=== PATIENT | male | born 1965 | race African-American/Black ===

== ENCOUNTER 2021-07-30 13:30 | Outpatient (RCR) | payer MEDICARE, SELFPAY ==
[2021-05-05 11:13] VITALS: BP 134/90; PULSE 93; RESP 16; O2SAT 99
[2021-05-05 11:33] VITALS: PULSE 93
== END 2021-07-30 19:30 | disposition home or self-care (01) ==
LOC: ANHCPREHAB 13:30
PROVIDERS: PCP Internal Medicine
DX: Z95.2 Presence of prosthetic heart valve (principal)
CPT/HCPCS: 93798